=== PATIENT | female | born 1965 ===

== ENCOUNTER → 2022-06-26 | Outpatient (CLI) | payer OTHER ==
[2022-07-01 12:09] LABS: HPV 16 Negative (Negative); HPV 18 Negative (Negative); HPV OTHER HR TYPES Negative (Negative)
== END | disposition home or self-care (01) ==
LOC: LAB 10:20 → LAB SHORT 10:20
PROVIDERS: Registered Nurse Community Health
DX: Z12.4 Encounter for screening for malignant neoplasm of cervix (principal); B37.2 Candidiasis of skin and nail; B37.3 Candidiasis of vulva and vagina
CPT/HCPCS: 83036